=== PATIENT | female | born 1995 | race Caucasian/White ===

== ENCOUNTER 2016-05-31 08:21 | Emergency (ER) | payer MEDICAID ==
[~2016-05-31] VITALS: Ht 162.6 cm; Wt 90.7 kg
[2016-05-31 08:24] VITALS: BP 148/73
--- NOTE | 2016-05-31 08:29 | NUR ---
PT TAKEN TO BED 7
--- NOTE | 2016-05-31 08:30 | NUR ---
Note undone in EDM - 05/31/16 at 0846 by [email or web address] 21F BIB FAMILY C/O LEFT 5TH TOE PAIN X 4 DAYS; PT STATES TOE GOT STUCK ON DOOR, AND PT PULLED DOOR. PT DENIES N/V/D; SKIN IS PINK/WARM/DRY; BRUISE TO LEFT 5TH TOE ; AAOX4 WITH EVEN AND STEADY GAIT; LUNGS CLEAR BL; HR EVEN AND REGULAR; PATIENT STATES PAIN OF 0/10 AT THIS TIME; VSS; PATIENT POSITIONED FOR COMFORT; HOB ELEVATED; BEDRAILS UP X2; BED DOWN. ER MADE AWARE OF PT STATUS.
--- NOTE | 2016-05-31 08:30 | NUR ---
21F BIB FAMILY C/O LEFT 5TH TOE PAIN X 4 DAYS; PT STATES TOE GOT STUCK ON DOOR, AND PT PULLED DOOR. PT DENIES N/V/D; SKIN IS PINK/WARM/DRY; BRUISE TO LEFT 5TH TOE ; AAOX4 WITH EVEN AND STEADY GAIT; LUNGS CLEAR BL; HR EVEN AND REGULAR; PATIENT STATES PAIN OF 5/10 AT THIS TIME; VSS; PATIENT POSITIONED FOR COMFORT; HOB ELEVATED; BEDRAILS UP X2; BED DOWN. ER MD MADE AWARE OF PT STATUS.
--- NOTE | 2016-05-31 08:45 | NUR ---
ER MD DR GUTIERREZ EVALUATING PT AT BEDSIDE
--- NOTE | 2016-05-31 08:58 | NUR ---
X RAY AT BEDSIDE
[2016-05-31 09:48] VITALS: BP 132/72
== END 2016-05-31 09:48 | disposition home or self-care (01) ==
LOC: MED 08:21
DX: S90.122A Contusion of left lesser toe(s) without damage to nail, initial encounter (principal); W23.0XXA Caught, crushed, jammed, or pinched between moving objects, initial encounter; Y93.01 Activity, walking, marching and hiking; Y92.89 Other specified places as the place of occurrence of the external cause; Y99.8 Other external cause status
CPT/HCPCS: 73630; 81025; 99284; Q0092